=== PATIENT | female | born 1945 | race Caucasian/White ===

== ENCOUNTER → 2016-10-03 | Outpatient (CLI) | payer MEDICARE | LOC: MC.RAD 10:40 | DX: Z12.31 Encounter for screening mammogram for malignant neoplasm of breast (principal) ==

== ENCOUNTER → 2017-03-27 | Outpatient (CLI) | payer MEDICARE | LOC: COL.RAD 10:10 | DX: N28.89 Other specified disorders of kidney and ureter (principal); K80.20 Calculus of gallbladder without cholecystitis without obstruction; K83.8 Other specified diseases of biliary tract ==

== ENCOUNTER → 2017-07-04 | Outpatient (CLI) | payer MEDICARE | LOC: COL.RAD 08:55 | DX: Z01.812 Encounter for preprocedural laboratory examination (principal); N28.1 Cyst of kidney, acquired; M41.85 Other forms of scoliosis, thoracolumbar region; K80.20 Calculus of gallbladder without cholecystitis without obstruction; N28.89 Other specified disorders of kidney and ureter | CPT/HCPCS: Q9967 ==

== ENCOUNTER → 2017-10-26 | Outpatient (CLI) | payer MEDICARE | LOC: MC.RAD 11:32 | DX: Z12.31 Encounter for screening mammogram for malignant neoplasm of breast (principal) ==

== ENCOUNTER → 2018-06-06 | Outpatient (CLI) | payer MEDICARE | LOC: COL.VAS 13:01 | DX: M71.21 Synovial cyst of popliteal space [Baker], right knee (principal); R79.1 Abnormal coagulation profile; M79.604 Pain in right leg ==

== ENCOUNTER → 2018-09-20 | Outpatient (CLI) | payer MEDICARE | LOC: COL.RAD 13:21 | DX: R19.03 Right lower quadrant abdominal swelling, mass and lump (principal); R59.0 Localized enlarged lymph nodes | CPT/HCPCS: Q9967 ==

== ENCOUNTER 2018-10-23 05:30 | Day surgery (SDC) | payer MEDICARE ==
[~2018-10-23] VITALS: Ht 158.8 cm; Wt 58.6 kg
[2018-10-23 06:04] VITALS: BP 155/90; PULSE 87; TEMP 98.6
[2018-10-23] MEDS ORDERED: PAMELOR 25MG25 MG PO (06:21)
[2018-10-23] MEDS ORDERED: CORGARD20 MG PO (06:21)
[2018-10-23] MEDS ORDERED: PROTONIX 40MG T40 MG PO (06:21)
[2018-10-23] MEDS ORDERED: PREMARIN VAG42.5 GM VG (06:22)
[2018-10-23] MEDS ORDERED: CRESTOR5 MG PO (06:22)
[2018-10-23] MEDS ORDERED: COLACE 100100 MG/CAP PO (06:23)
[2018-10-23] MEDS ORDERED: OPTIFLEX-G 7501 TAB PO (06:24)
[2018-10-23] MEDS ORDERED: TYLENOL 500MG500 MG PO (06:28)
[2018-10-23] MEDS ORDERED: VITAMIN D 1001000 IU PO (06:30)
[2018-10-23] MEDS ORDERED: CRANBERRY 100 M1 SGL PO (06:30)
[2018-10-23] MEDS ORDERED: TUMS500 MG PO ×2 (06:31→06:32)
[2018-10-23] MEDS ORDERED: GAS-X ULTRA ST180 MG PO (06:32)
[2018-10-23] MEDS ORDERED: TUMS EXTRA STR750 MG PO (06:33)
[2018-10-23] MEDS ORDERED: GELUSIL PO (06:36)
[2018-10-23 09:02] VITALS: TEMP 97.9
[2018-10-23 09:15] VITALS: BP 152/69; PULSE 61
--- NOTE | 2018-10-23 09:15 | NUR ---
Patient returns to room 8 per cart and is awake and alert. Brown set dressing x3 on lower abdomen clean. IV fluids infusing and site free of redness. Siderails up x2 and call light in reach. Spouse in room. Denies pain or nausea. Taking ice chips and eating applesauce.
[2018-10-23 09:30] VITALS: BP 154/57; PULSE 63
--- NOTE | 2018-10-23 09:30 | NUR ---
Room air sats 98%. Spouse in room and resting.
[2018-10-23] MEDS ORDERED: NORCO 325 MG-51 TAB PO (09:32)
[2018-10-23 09:45] VITALS: BP 144/64; PULSE 58
--- NOTE | 2018-10-23 09:45 | NUR ---
Sipping coffee and eating applesauce. Denies pain or nausea.
[2018-10-23 10:15] VITALS: BP 139/66; PULSE 60
--- NOTE | 2018-10-23 10:15 | NUR ---
Resting and talking with spouse.
--- NOTE | 2018-10-23 10:20 | NUR ---
Assisted up to the bathroom and gait is steady. Able to void and returns to room. IV discontinued and site is free of redness. Spouse assists with dressing patient.
--- NOTE | 2018-10-23 10:35 | NUR ---
Given dismissal instructions and voices understanding of these. Provided script for Jenera.
--- NOTE | 2018-10-23 10:40 | NUR ---
Patient dismissed to home per private vehicle driven by spouse and taken to the front door per wheelchair and assisted into vehicle. Dismissal instructions in hand.
== END 2018-10-23 10:40 | disposition home or self-care (01) ==
LOC: SDCO 05:30
DX: K41.90 Unilateral femoral hernia, without obstruction or gangrene, not specified as recurrent (principal); F17.210 Nicotine dependence, cigarettes, uncomplicated; Z79.899 Other long term (current) drug therapy; E78.5 Hyperlipidemia, unspecified; K21.9 Gastro-esophageal reflux disease without esophagitis; G89.29 Other chronic pain; M54.9 Dorsalgia, unspecified; F41.0 Panic disorder [episodic paroxysmal anxiety]; M19.90 Unspecified osteoarthritis, unspecified site
CPT/HCPCS: C1781; J0690; J1100; J2405; J2704; J2710; J3010; J7120

== ENCOUNTER → 2018-11-12 | Outpatient (CLI) | payer MEDICARE ==
[~2018-11-12] MED LIST: COLACE 100100 MG/CAP PO; CORGARD20 MG PO; CRANBERRY 100 M1 SGL PO; CRESTOR5 MG PO; GAS-X ULTRA ST180 MG PO; GELUSIL PO; NORCO 325 MG-51 TAB PO; OPTIFLEX-G 7501 TAB PO; PAMELOR 25MG25 MG PO; PREMARIN VAG42.5 GM VG; PROTONIX 40MG T40 MG PO; TUMS EXTRA STR750 MG PO; TUMS500 MG PO; TYLENOL 500MG500 MG PO; VITAMIN D 1001000 IU PO
== END ==
LOC: MC.RAD 10-29 10:15
DX: Z12.31 Encounter for screening mammogram for malignant neoplasm of breast (principal)

== ENCOUNTER → 2021-01-05 | Outpatient (CLI) | payer MEDICARE | LOC: MC.RAD 11:00 | DX: Z12.31 Encounter for screening mammogram for malignant neoplasm of breast (principal) ==

== ENCOUNTER 2021-05-03 10:45 | Outpatient (RCR) | payer MEDICARE | END 2021-05-12 08:45 | disposition home or self-care (01) | LOC: PT.GENESIS 10:45 | DX: M47.22 Other spondylosis with radiculopathy, cervical region (principal) ==

== ENCOUNTER → 2022-01-17 | Outpatient (CLI) | payer MEDICARE | LOC: MC.RAD 14:54 | DX: Z12.31 Encounter for screening mammogram for malignant neoplasm of breast (principal) ==

== ENCOUNTER → 2023-02-02 | Outpatient (CLI) | payer MEDICARE | LOC: MC.RAD 11:14 | DX: Z12.31 Encounter for screening mammogram for malignant neoplasm of breast (principal) ==

== ENCOUNTER → 2023-06-26 | Outpatient (CLI) | payer MEDICARE ==
[~2023-06-26] MED LIST changes: +ASPIRIN E.C. 8181 MG PO; +COREG 6.256.25 MG/TA PO; +FOSAMAX 70MG TA70 MG PO; +PRINIVIL5 MG PO; +PRINZIDE 12.5 M1 TAB PO; +REQUIP0.25 MG PO; +TYLENOL 325MG325 MG PO
[2023-06-26 14:30] LABS: BASO # 0.1 K/mm3 (0.0-0.2); BASO % 0.6 % (0.0-2.0); EOS # 0.1 K/mm3 (0.0-0.7); EOS % 0.9 % (0.0-4.0); GRAN # 5.2 K/mm3 (1.4-6.5); GRAN % 61.1 % (42.2-75.2); HEMATOCRIT 37.7 % (37.0-47.0); HEMOGLOBIN 12.8 g/dl (12.5-16.0); LYMPH # 2.5 K/mm3 (1.2-3.4); LYMPH % 29.2 % (20.0-51.0); MEAN CELL VOLUME 88 fl (80.0-100.0); MEAN CORPUSCULAR HEMOGLOBIN 30 pg (27-31); MEAN CORPUSCULAR HGB CONC 34 g/dl (33.0-37.0); MEAN PLATELET VOLUME 8.5 fl (7.4-10.4); MONO # 0.7 K/mm3 (0.1-0.6); PLATELET COUNT 402 K/mm3 (130-400); RED BLOOD COUNT 4.31 M/mm3 (4.10-5.30); REDCELL DISTRIBUTION WIDTH-CV 12.1 % (11.5-14.5)
[2023-06-26 14:48] LABS: ALBUMIN 3.9 gm/dL (3.4-4.8); BILIRUBIN,TOTAL 0.8 mg/dL (0.2-1.2); CALCIUM 9.1 mg/dL (8.4-10.2); CREATININE, serum 0.77 mg/dL (0.57-1.11); POTASSIUM 3.7 mmol/L (3.5-4.5); TOTAL PROTEIN 7.1 gm/dL (6.2-8.1)
[2023-06-26 15:02] LABS: TROPONIN-I 0.864 ng/mL (0.00-0.033)
== END ==
LOC: COL.LAB 14:11
PROVIDERS: Physician Assistant
DX: R42 Dizziness and giddiness (principal)

== ENCOUNTER 2023-08-31 14:56 | Outpatient (RCR) | payer MEDICARE | END 2023-09-02 | disposition home or self-care (01) | LOC: COL.CR | DX: I50.9 Heart failure, unspecified (principal); I51.81 Takotsubo syndrome ==

== ENCOUNTER → 2023-10-03 | Outpatient (RCR) | payer MEDICARE | END | disposition home or self-care (01) | LOC: COL.CR | DX: I50.9 Heart failure, unspecified (principal) ==

== ENCOUNTER 2023-10-31 15:37 | Outpatient (RCR) | payer MEDICARE | END 2023-11-01 | disposition home or self-care (01) | LOC: COL.CR | DX: I50.9 Heart failure, unspecified (principal) ==